=== PATIENT | male | born 1960 | race Hispanic/Latino ===

== ENCOUNTER → 2019-05-24 | Day surgery (SDC) | payer OTHER ==
[2019-05-22 16:12] LABS: BASOPHILS # (AUTO) 0.1 (0.0-0.1); BASOPHILS % 0.7 % (0.0-1.0); EOSINOPHILS # (AUTO) 0.1 (0.0-0.4); EOSINOPHILS % 1.5 % (0.0-6.0); HEMATOCRIT 41.4 % (38.2-49.6); HEMOGLOBIN 13.7 g/dL (14.0-18.0); LYMPHOCYTES # (AUTO) 2.4 (1.0-3.2); LYMPHOCYTES % 27.8 % (18.0-39.1); MEAN CORPUSCULAR HEMOGLOBIN 28.4 pg (28-32); MEAN CORPUSCULAR HGB CONC 33.1 g/dL (31-35); MEAN CORPUSCULAR VOLUME 85.9 fL (81-99); MONOCYTES % 11.1 % (4.4-11.3); NEUTROPHILS # (AUTO) 5.1 (2.1-6.9); NEUTROPHILS % 58.6 % (38.7-80.0); PLATELET COUNT 208 x10e3/uL (140-360); RED BLOOD COUNT 4.82 x10e6/uL (4.3-5.7); RED CELL DISTRIBUTION WIDTH 12.6 % (11.7-14.4)
[2019-05-22 16:24] LABS: ANION GAP 13.7 mmol/L (8-16); BLOOD UREA NITROGEN 7 mg/dL (7-26); BUN/CREATININE RATIO 10 (6-25); CALCIUM 9.5 mg/dL (8.4-10.2); CARBON DIOXIDE 25 mmol/L (22-29); CHLORIDE 101 mmol/L (98-107); CREATININE, SERUM 0.71 mg/dL (0.72-1.25); EST GLOMERULAR FILTRATION RATE > 60 ML/MIN (60-); GLUCOSE 163 mg/dL (74-118); POTASSIUM 3.7 mmol/L (3.5-5.1); SODIUM 136 mmol/L (136-145)
--- NOTE | 2019-05-22 16:51 | Diagnostic Imaging Report ---
EXAM: CHEST 2 VIEWS DATE: 05/22/2019 3:47 PM INDICATION: Preoperative evaluation for prostate surgery COMPARISON: None FINDINGS: The trachea is midline. The lungs are symmetrically expanded without evidence for large focal consolidation, pneumothorax, or significant pleural effusion. Implanted cardiac monitoring device noted within the left lower chest wall. The cardiomediastinal silhouette and pulmonary vasculature are within normal limits. Partially visualized surgical changes noted of the right shoulder. No acute osseous abnormality is identified. The surrounding soft tissues are unremarkable. IMPRESSION: No acute cardiopulmonary process identified. Signed by: Dr. James Lux MD on 05/22/2019 4:48 PM
[~2019-05-24] MED LIST: ACETAMINOPHEN 1000 MG/100 ML IV ONE; ACETAMINOPHEN/CODEINE 300MG - 30MG TAB ONE; ATENOLOL50 MG PO; ATIVAN1 MG PO; ATORVASTATIN CA20 MG PO; BACTRIM DS TAB1 EACH PO; CEFTRIAXONE SOD 1 GM/NS 50 ML 50 ML IV ONE; CLOPIDOGREL75 MG PO; DEXAMETHASONE SOD PHOS INJ 4 MG/ML VIAL ONE; FENTANYL CITRATE/PF 100MCG/2 ML INJ ONE; FINASTERIDE5 MG PO; FLOMAX0.4 MG PO; GLYBURIDE5 MG PO; KETOROLAC TROMETHAMINE 30 MG/ML VIAL ONE; LIDOCAINE HCL 2% LOCAL INJ 5 ML SDV VIAL INJ ONE; LISINOPRIL10 MG PO; LORAZEPAM2 MG/1 M1 IV; METFORMIN HCL500 MG PO; MIDAZOLAM HCL 2 MG/2 ML VIAL ONE; ONDANSETRON HCL INJ 2MG/ML 2ML 2 MG/ML VIAL ONE; PROPOFOL IV EMULSION 10 MG/ML 20 ML VIAL ONE; SEVOFLURANE INHAL SOLN 250 ML PEN BTL ONE; TYLENOL # 31 EA PO
[2019-05-24 14:10] VITALS: BP 134/80
--- NOTE | 2019-05-27 03:38 | Operative Report ---
DATE OF PROCEDURE: 05/24/2019 SURGEON: Roman Stiles MD PREOPERATIVE DIAGNOSIS: Bladder outlet obstruction. POSTOPERATIVE DIAGNOSIS: Bladder outlet obstruction. OPERATIVE PROCEDURE: Transurethral cystoscopy, transurethral incision of the prostate. ANESTHESIA: General anesthesia. ESTIMATED BLOOD LOSS: Minimal. INDICATIONS: Mr. Rusty Oliva is a 58-year-old gentleman with a prior history of bladder outlet obstruction, which has failed conservative management. He was also recently noted to have a febrile urinary tract infection requiring hospitalization. He now presents for definitive surgical management of this problem. PROCEDURE IN DETAIL: The patient was brought to the operative room, placed in supine position. After administration of general anesthesia, was placed in the dorsal lithotomy position and prepped and draped in usual sterile fashion. Cystourethroscopy was performed using 22-Ecuadorean cystoscope. The anterior and posterior urethra were noted to be normal. The prostatic fossa was short, but the median bar was elevated. There was minimal lateral lobar tissue appreciated. The bladder was entered with mild difficulty. Upon entrance into the bladder, the ureteral orifices were in normal anatomical position and produced large clear efflux. There were grade 1-2 trabeculations noted throughout the bladder, although there were no [place] diverticula appreciated. There were no mucosal lesions identified. The bladder was left full, and the cystoscope and the sheath were removed. A 26-Ecuadorean resectoscope sheath was then placed in a retrograde fashion and the [employer] resectoscope with a Amin knife was used to perform the procedure. Beginning at the intertrigonal ridge at the level of the ureteral orifice, 2 long troughs were made proceeding inferiorly through the median bar and ending at the level of the verumontanum. This was taken down to the fatty layer in both troughs. There was minimal bleeding noted at the conclusion of the procedure. A small amount of irritated tissue in between the 2 troughs was fulgurated using the electrocautery device. Once adequate hemostasis was secured, the bladder was left full and the resectoscope and sheath were removed. The patient was noted to have a brisk urinary flow with coude. A 20-Ecuadorean coude catheter was then placed in a retrograde fashion and the balloon inflated with approximately 20 mL of sterile water. The urinary efflux was noted to be blood tinged. The patient was returned to the supine position and anesthesia was reversed. He was transferred to a bed and taken to the Postanesthesia Care Unit in good condition. Of note, the needle and instrument counts were correct at the conclusion of the case. MD STACY Mosley/MODL /[id number]
--- OUTSIDE RECORDS SUMMARY | 2019-06-01 11:16 | XMS REPORT ---
[facility] Address Unknown Phone Unavailable Care Team Providers Care Licensed Clinical Psychologist Name Role Phone Antonio HOUGH Unavailable Unavailable Payers Payer Name Policy Type Policy Number Effective Date Expiration Date Problems This patient has no known problems. Allergies, Adverse Reactions, Alerts Allergy Name Allergy Type Status Severity Reaction(s) Onset Date Inactive Date Treating Clinician Comments No Known Allergies DA Active U 2019-01-25 00:00:00 Medications This patient has no known medications. Results Test Description Test Time Test Comments Text Results Atomic Results Result Comments CBC W/AUTO DIFF 2019-05-24 19:37:00 WHITE BLOOD CELL (test code=WBC) 21.4 x10 3/u 4.8-10.8 RED BLOOD CELL (test code=RBC) 4.48 x10 6/uL 4.70-6.10 HEMOGLOBIN (test code=HGB) 13.4 g/dL 13.0-17.0 HEMATOCRIT (test code=HCT) 38.9 % 42.0-52.0 MEAN CELL VOLUME (test code=MCV) 87 fL 80-99 MEAN CELL HGB (test code=MCH) 29.9 pg 27.0-31.0 MEAN CELL HGB CONCENTRATION (test code=MCHC) 34.4 g/dL 33.0-37.0 RED CELL DISTRIBUTION WIDTH (test code=RDW) 12.6 % 11.5-14.5 PLATELET COUNT (test code=PLT) 166 x10 3/uL 130-400 MEAN PLATELET VOLUME (test code=MPV) 10.5 fL 9.4-12.4 MIXED % (test code=MX%) 4.0 % 0.0-11.0 The Mixed Cell percent and Mixed Cell absolute numberinclude monocytes, eosinophils and basophils. MIXED # (test code=MX#) 0.9 10e3/mm3 0.2-1.1 WBC [id number] 19:37:00* Test Item Value Reference Range Comments TOTAL CELLS COUNTED (test code=TCC) 100 #CELLS SEGMENTED NEUTROPHILS (test code=SEG) 95 % 43-65 LYMPHOCYTE (test code=LYMPH) 2 % 20.5-45.5 MONOCYTE (test code=MON) 3 % 5.5-11.7 RBC MORPHOLOGY COMMENT (test code=MOC) Normal NORMAL PLATELET ESTIMATE (test code=PLTEST) ADEQUATE ADEQUATE PLATELET MORPHOLOGY (test code=PLTMORPH) NORMAL NORMAL COMPREHENSIVE METABOLIC [id number] 19:24:00* Test Item Value Reference Range Comments SODIUM POC (test code=NAP) mmol/L 138-146 POTASSIUM POC (test code=KP) mmol/L 3.5-4.9 CHLORIDE POC (test code=CLP) mmol/L 98-109 CO2 POC (test code=CO2P) mmol/L 24-29 GLUCOSE POC (test code=GLUP) MG/DL 70-105 BUN POC (test code=BUNP) mg/dL 8-26 CREATININE POC (test code=CREATP) mg/dL 0.6-1.3 GLOMERULAR FILTRATION RATE POC (test code=GFRP) 116 56-130 TOTAL PROTEIN (test code=PROT) g/dL 6.4-8.1 ALBUMIN (test code=ALB) g/dL 3.3-5.5 CALCIUM (test code=CA) mg/dL 8.8-10.5 BILIRUBIN TOTAL (test code=BILT) mg/dL 0.2-1.6 SGOT/AST (test code=AST) IU/L 11-38 SGPT/ALT (test code=ALT) IU/L 10-47 ALKALINE PHOSPHATASE (test code=ALKP) IU/L 42-141 COMPREHENSIVE METABOLIC [id number] 19:24:00* Test Item Value Reference Range Comments SODIUM POC (test code=NAP) 138 mmol/L 138-146 POTASSIUM POC (test code=KP) 4.3 mmol/L 3.5-4.9 CHLORIDE POC (test code=CLP) 100 mmol/L 98-109 CO2 POC (test code=CO2P) 26 mmol/L 24-29 GLUCOSE POC (test code=GLUP) 287 MG/DL 70-105 BUN POC (test code=BUNP) 10 mg/dL 8-26 CREATININE POC (test code=CREATP) 0.7 mg/dL 0.6-1.3 GLOMERULAR FILTRATION RATE POC (test code=GFRP) 116 56-130 TOTAL PROTEIN (test code=PROT) 6.7 g/dL 6.4-8.1 ALBUMIN (test code=ALB) 3.6 g/dL 3.3-5.5 CALCIUM (test code=CA) 9.2 mg/dL 8.8-10.5 BILIRUBIN TOTAL (test code=BILT) 0.6 mg/dL 0.2-1.6 SGOT/AST (test code=AST) 28 IU/L 11-38 SGPT/ALT (test code=ALT) 28 IU/L 10-47 ALKALINE PHOSPHATASE (test code=ALKP) 59 IU/L 42-141 PROTHROMBIN [id number] 19:19:00* Test Item Value Reference Range Comments PROTHROMBIN TIME PATIENT (test code=PTP) 13.7 SECONDS 9.5-12.9 INTERNATIONAL NORMAL RATIO (test code=INR) 1.2 0.85-1.15 The INR is to be used only for monitoring ORAL ANTICOAGULANTTHERAPY. Indication INR Value1. Prophylaxis/treatment of: Venous Thrombosis, Pulmonary Embolism 2.0 - 3.02. Prevention of systemic embolism from: Tissue heart valves 2.0 - 3.0 Acute myocardial infarction (to present systemic embolism)* 2.0 - 3.0 Valvular heart disease 2.0 - 3.0 Atrial fibrillation 2.0 - 3.03. Mechanical prosthetic valves (high risk) 2.5 - 3.5 * If oral anticoagulant therapy is elected to preventrecurrent myocardial infarction, an INR of 2.5-3.5 isrecommended, consistent with Food and Drug Administrationrecommendations. CBC W/AUTO [id number] 19:15:00* Test Item Value Reference Range Comments WHITE BLOOD CELL (test code=WBC) 21.4 x10 3/u 4.8-10.8 RED BLOOD CELL (test code=RBC) 4.48 x10 6/uL 4.70-6.10 HEMOGLOBIN (test code=HGB) 13.4 g/dL 13.0-17.0 HEMATOCRIT (test code=HCT) 38.9 % 42.0-52.0 MEAN CELL VOLUME (test code=MCV) 87 fL 80-99 MEAN CELL HGB (test code=MCH) 29.9 pg 27.0-31.0 MEAN CELL HGB CONCENTRATION (test code=MCHC) 34.4 g/dL 33.0-37.0 RED CELL DISTRIBUTION WIDTH (test code=RDW) 12.6 % 11.5-14.5 PLATELET COUNT (test code=PLT) 166 x10 3/uL 130-400 MEAN PLATELET VOLUME (test code=MPV) 10.5 fL 9.4-12.4 MIXED % (test code=MX%) 4.0 % 0.0-11.0 The Mixed Cell percent and Mixed Cell absolute numberinclude monocytes, eosinophils and basophils. MIXED # (test code=MX#) 0.9 10e3/mm3 0.2-1.1 WBC [id number] 19:15:00* Test Item Value Reference Range Comments TOTAL CELLS COUNTED (test code=TCC) #CELLS SEGMENTED NEUTROPHILS (test code=SEG) % 43-65 LYMPHOCYTE (test code=LYMPH) % 20.5-45.5 CBC W/AUTO [id number] 19:15:00* Test Item Value Reference Range Comments WHITE BLOOD CELL (test code=WBC) 21.4 x10 3/u 4.8-10.8 RED BLOOD CELL (test code=RBC) 4.48 x10 6/uL 4.70-6.10 HEMOGLOBIN (test code=HGB) 13.4 g/dL 13.0-17.0 HEMATOCRIT (test code=HCT) 38.9 % 42.0-52.0 MEAN CELL VOLUME (test code=MCV) 87 fL 80-99 MEAN CELL HGB (test code=MCH) 29.9 pg 27.0-31.0 MEAN CELL HGB CONCENTRATION (test code=MCHC) 34.4 g/dL 33.0-37.0 RED CELL DISTRIBUTION WIDTH (test code=RDW) 12.6 % 11.5-14.5 PLATELET COUNT (test code=PLT) 166 x10 3/uL 130-400 MEAN PLATELET VOLUME (test code=MPV) 10.5 fL 9.4-12.4 MIXED % (test code=MX%) 4.0 % 0.0-11.0 The Mixed Cell percent and Mixed Cell absolute numberinclude monocytes, eosinophils and basophils. MIXED # (test code=MX#) 0.9 10e3/mm3 0.2-1.1 WBC [id number] 19:15:00* Test Item Value Reference Range Comments TOTAL CELLS COUNTED (test code=TCC) #CELLS SEGMENTED NEUTROPHILS (test code=SEG) % 43-65 LYMPHOCYTE (test code=LYMPH) % 20.5-45.5 CHEST 2 [id number] 16:46:00 [facility] [address] [address] Patient Name: JOSE ANGEL LOVELL JR MR #: [id number] : 1960 Age/Sex: 58/M Req #: [id number] Adm Physician: Ordered by: GLADYS HOUGH MD Report #: [id number] Location: OR Room/Bed: Procedure: 1210-0 053 DX/CHEST 2 VIEWS Exam Date: 05/22/19 Exam Time: 1622 REPORT STATUS: Signed EXAM: CHEST 2 VIEWS DATE: 05/22/2019 3:47 PM INDICATION: Preoperative ev aluation for prostate surgery COMPARISON: None FINDINGS: The trache a is midline. The lungs are symmetrically expanded without evidence for large focal consolidation, pneumothorax, or significant pleural effusion. Implant ed cardiac monitoring device noted within the left lower chest wall. The cardi omediastinal silhouette and pulmonary vasculature are within normal limits. Pa rtially visualized surgical changes noted of the right shoulder. No acute osse ous abnormality is identified. The surrounding soft tissues are unremarkable. IMPRESSION: No acute cardiopulmonary process identified. Signed by: Dr. James Lux MD on 05/22/2019 4:48 PM Dictated By: JAMES LUX MD 47 Transcribed By: JESSICA on 05/22/191647 COPY TO: GLADYS HOUGH MD METHYLMALONIC [id number] 12:09:00* Test Item Value Reference Range Comments METHYLMALONIC ACID (test code=METHM) 105 nmol/L 0-378 DRUGS OF ABUSE SCREEN [id number] 12:53:00* Test Item Value Reference Range Comments UR COCAINE (test code=COCAU) NEGATIVE NEGATIVE UR METHAMPHETAMINE (test code=METHAMPHU) NEGATIVE NEGATIVE UR CANABINOIDS (test code=CANU) NEGATIVE NEGATIVE UR AMPHETAMINE (test code=AMPHU) NEGATIVE NEGATIVE UR BARBITURATE (test code=BARBQLU) NEGATIVE NEGATIVE UR BENZODIAZEPINE (test code=BENZU) NEGATIVE NEGATIVE METHADONE (test code=METHDU) NEGATIVE NEGATIVE PROPOXYPHENE SCREEN (test code=PROPXSQ) NEGATIVE NEGATIVE UR OPIATES QUAL (test code=OPIAQLU) NEGATIVE NEGATIVE OXYCODONE (test code=OXYCOD) NEGATIVE NEGATIVE UR TRICYCLICS (test code=TRICYCU) NEGATIVE NEGATIVE UR PHENCYCLIDINE (PCP) (test code=PHENCU) NEGATIVE NEGATIVE UR BUPRENORPHINE QUAL (test code=BUPRESCRT) NEGATIVE NEGATIVE [id number] 11:13:00* Test Item Value Reference Range Comments GLUBED (test code=GLUBED) 138 MG/DL 70-105 [id number] 06:43:00* Test Item Value Reference Range Comments GLUBED (test code=GLUBED) 128 MG/DL 70-105 [id number] 21:24:00* Test Item Value Reference Range Comments GLUBED (test code=GLUBED) 138 MG/DL 70-105 [id number] 15:44:00* Test Item Value Reference Range Comments GLUBED (test code=GLUBED) 145 MG/DL 70-105 VITAMIN [id number] 15:13:00* Test Item Value Reference Range Comments VITAMIN B12 (test code=VITB12) 100 pg/ml 180-914 T4 [id number] 15:06:00* Test Item Value Reference Range Comments T4 FREE (test code=T4F) 1.15 ng/dL 0.61-1.12 FREE T4 REFERENCE RANGES:FIRST TRIMESTER: 0.52 - 1.08 ng/dLSECOND TRIMESTER: 0.45 - 0.99 ng/dLTHIRD TRIMESTER: 0.48 - 0.95 ng/dL THYROID STIMULATING [id number] 14:59:00* Test Item Value Reference Range Comments THYROID STIMULATING HORMONE (test code=TSH) 1.15 mIU/mL 0.38-5.60 [id number] 14:45:00* Test Item Value Reference Range Comments AMMONIA (test code=AMM) 52 mcg/dL - MRI BRAIN W/O [id number] 12:16:00Patient Name: JOSE ANGEL LOVELL Unit No: [id number] EXAMS: CPT: [id number] MRI BRAIN W/O CONTRAST 03113 MRI BRAIN WITHOUT CONTRAST TECHNIQUE: Multisequence multiplanar MR imaging of the brain without gadolinium contrast COMPARISON: Head CT from January 25 2019. HISTORY: Altered mental status with fall. FINDINGS: No evidence for acute cerebral ischemia. Confluent increased T2 signal in the periventricular deep white matter both hemispheres compatible with moderate microvascular ischemic disease. Bilateral globus pallidus and dentate nucleus calcification is noted. Diffusion related artifact is seen in these regions. Ventricles normal in size/configuration. No midline shift. No mass effect. No extra-axial fluid collection. Orbits unremarkable. Mastoid air cells are clear. Sinuses clear. Included neck soft tissues are unremarkable. Expected flow-voids at the skull base. No evidence for acute or remote intracranial hemorrhage. IMPRESSION: No findings of acute ischemia. Extensive chronic microvascular ischemic disease changes. Bilateral globus pallidus and dentate nucleus calcification which may be seen in the setting of underlying metabolic calcium disease. Yuan Fulton MD Neuroradiology Name: JOSE ANGEL LOVELL [facility] Demetria Phys: Obey Tariq MD [address] : 0 1960 Age: 58 Sex: Frankie Mcneil Acct No: [id number] Loc: T.307 A Exam Date: 019 Status: ADM IN PH: FAX: PAGE 1 Signed Report (CONTINUED) Patient Name: JOSE ANGEL LOVELL Unit No: [id number] EXAMS: CPT: [id number] MRI BRAIN W/O CONTRAST [id number] <Continued> at 1216 Reported and signed by: Yuan Fulton MD CC: Obey Landry MD Technologist: Alvin Manzano [facility] Dt/Tm: 01/26/2019 (1216) by:[email or web address] Orig Print D/T: S: 01/26/2019 (8167) BATCH NO: N/A Name: JOSE ANGEL LOVELL [facility] Witten Phys: Obey Tariq MD [address] [facility] 1960 Age: 58 Sex: M Witten,Frankie Loc: T.307 A Exam Date: 01/26/2019 Status: ADM IN PH: FAX: PAGE 2 Signed Report [id number] 11:14:00* Test Item Value Reference Range Comments GLUBED (test code=GLUBED) 195 MG/DL 70-105 [id number] 06:25:00* Test Item Value Reference Range Comments GLUBED (test code=GLUBED) 107 MG/DL 70-105 [id number] 21:18:00* Test Item Value Reference Range Comments GLUBED (test code=GLUBED) 96 MG/DL 70-105 - CT HEAD/BRAIN W/O [id number] 16:25:00Patient Name: JOSE ANGEL LOVELL Unit No: [id number] EXAMS: CPT: [id number] CT HEAD/BRAIN W/O CONT 74607 Clinical History: Status post fall Comparison: None Technique: Noncontrast 2.5 mm contiguous axial images were obtained from the skull base through the vertex. Coronal and sagittal reformats are provided. Findings: Speckled calcifications are visualized within the right frontal lobe and cerebellum, and dense calcifications within the basal ganglia. Nonspecific low attenuation foci within the cerebral hemispheric white matter most likely reflect chronic microvascular ischemic change. No evidence of acute infarctions. The lambert-white matter junction is asad ntained. No masses, extra-axial collections, or hydrocephalus. Th ere is no intracranial hemorrhage, mass effect, or midline shift. The basa l cisterns are patent. The bone windows of the skull are unr emarkable. Visualized portions of the paranasal sinuses are unrem arkable. Impression: 1. No acute intracranial abnormalities. 2. Nonspecific calcifications within the right frontal lobe, cerebellum, and basal ganglia. Correlate for possible paris cium metabolic disorder. 3. Nonspecific white matter c hanges may reflect chronic microvascular disease. CT r adiation dose optimization is achieved for this examination by the use o f a CT protocol in accordance with ACR practice guidelines and adherence to drain tile press operator's recommendations. at 1625 Reported and signed by: CHING STAPLETON MD CC: Shant Lemon MD Te chnologist: JESSA SHEPHERD CTDI : 27.7 DLP: 403.40 Trscr Dt/Tm: 01/25/2019 (1625) by:[email or web address] Orig Print D/T: S: 01/25/2019 (1628) BATCH NO: N/A Name: JOSE ANGEL LOVELL FSED Phys: VANIA - Shant Lemon [address] : 1960 Age: 58 Sex: Ratna whittington,Tamir [id number] Loc: DREW Exam Date: 01/25/2019 Status: REG ER PH: [phone] FAX: PAGE 1 Signed Report TROPONIN I [id number] 15:57:00* Test Item Value Reference Range Comments TROPONIN I RAPID (test code=TROPIRAP) 0.06 ng/mL 0.00-0.08 ISTAT TROPONIN I CRITERIA0.00-0.08 ng/mL - Negative>0.08 ng/mL - Positive The use of serial sampling and testing protocol is arecommended practice.An elevated troponin level alone is often not sufficient fordiagnosis of myocardial infarction. Troponin results obtained by different assays may vary.Evaluation of the extent of myocardial damage based onincrease of troponin would be valid only if similarmethodology is used. CHEMISTRY 8 [id number] 15:52:00* Test Item Value Reference Range Comments SODIUM POC (test code=NAP) mmol/L 138-146 POTASSIUM POC (test code=KP) mmol/L 3.5-4.9 CHLORIDE POC (test code=CLP) mmol/L 98-109 CO2 POC (test code=CO2P) mmol/L 24-29 IONIZED CALCIUM POC (test code=CAIP) mmol/L 1.10-1.32 GLUCOSE POC (test code=GLUP) MG/DL 70-105 BUN POC (test code=BUNP) mg/dL 8-26 CREATININE POC (test code=CREATP) mg/dL 0.6-1.3 GLOMERULAR FILTRATION RATE POC (test code=GFRP) 116 56-130 CHEMISTRY 8 [id number] 15:52:00* Test Item Value Reference Range Comments SODIUM POC (test code=NAP) 137 mmol/L 138-146 POTASSIUM POC (test code=KP) 3.8 mmol/L 3.5-4.9 CHLORIDE POC (test code=CLP) 100 mmol/L 98-109 CO2 POC (test code=CO2P) 25 mmol/L 24-29 IONIZED CALCIUM POC (test code=CAIP) 1.17 mmol/L 1.10-1.32 GLUCOSE POC (test code=GLUP) 104 MG/DL 70-105 BUN POC (test code=BUNP) 34 mg/dL 8-26 CREATININE POC (test code=CREATP) 0.7 mg/dL 0.6-1.3 GLOMERULAR FILTRATION RATE POC (test code=GFRP) 116 56-130 CBC W/AUTO [id number] 15:49:00* Test Item Value Reference Range Comments WHITE BLOOD CELL (test code=WBC) 10.6 x10 3/u 4.8-10.8 RED BLOOD CELL (test code=RBC) 4.85 x10 6/uL 4.70-6.10 HEMOGLOBIN (test code=HGB) 14.1 g/dL 13.0-17.0 HEMATOCRIT (test code=HCT) 42.4 % 42.0-52.0 MEAN CELL VOLUME (test code=MCV) 87 fL 80-99 MEAN CELL HGB (test code=MCH) 29.1 pg 27.0-31.0 MEAN CELL HGB CONCENTRATION (test code=MCHC) 33.3 g/dL 33.0-37.0 RED CELL DISTRIBUTION WIDTH (test code=RDW) 13.9 % 11.5-14.5 PLATELET COUNT (test code=PLT) 190 x10 3/uL 130-400 MEAN PLATELET VOLUME (test code=MPV) 10.0 fL 9.4-12.4 NEUTROPHIL % (test code=NT%) 68.2 % 37.0-80.0 LYMPHOCYTE % (test code=LY%) 19.9 % 10.0-50.0 MIXED % (test code=MX%) 11.9 % 0.0-11.0 The Mixed Cell percent and Mixed Cell absolute numberinclude monocytes, eosinophils and basophils. NEUTROPHIL # (test code=NT#) 7.2 x10 3/uL 2.0-6.9 LYMPHOCYTE # (test code=LY#) 2.1 x10 3/uL 0.9-4.1 MIXED # (test code=MX#) 1.3 10e3/mm3 0.2-1.1
== END | disposition home or self-care (01) ==
LOC: OR 07:56
PROVIDERS: ATTEND Urology
DX: N32.0 Bladder-neck obstruction (principal); Z87.440 Personal history of urinary (tract) infections; N40.0 Benign prostatic hyperplasia without lower urinary tract symptoms; N32.89 Other specified disorders of bladder; I10 Essential (primary) hypertension; E11.9 Type 2 diabetes mellitus without complications; R00.1 Bradycardia, unspecified; F41.9 Anxiety disorder, unspecified; Z01.810 Encounter for preprocedural cardiovascular examination; Z01.812 Encounter for preprocedural laboratory examination; Z01.818 Encounter for other preprocedural examination; Z79.02 Long term (current) use of antithrombotics/antiplatelets; Z79.84 Long term (current) use of oral hypoglycemic drugs; Z86.73 Personal history of transient ischemic attack (TIA), and cerebral infarction without residual deficits
CPT/HCPCS: 36415 ×2; 52450; 71046; 80048; 82948; 85025; 93005; J0131; J0696; J1100; J1885; J2001; J2250; J2405; J2704; J3010